=== PATIENT | male | born 1945 | race Caucasian/White ===

== ENCOUNTER 2017-07-12 06:38 | Inpatient (IN) | payer OTHER ==
[~2017-07-12] VITALS: Ht 182.9 cm; Wt 113.0 kg
[2017-07-12] MEDS ORDERED: BUPIVACAINE/PF 0.5% ONE (12:30)
[2017-07-12] MEDS ORDERED: VANCOMYCIN 1,000 MG ONE (12:30)
[2017-07-12] MEDS ORDERED: TRANEXAMIC ACID 100 MG/ML, 10ML ONE (12:30)
[2017-07-12] MEDS ORDERED: EPINEPHRINE 1 MG/ML, 1ML ONE (12:31)
[2017-07-12 12:36] VITALS: BP 158/83
[2017-07-12] MEDS ORDERED: NALO25TA PO (12:53)
[2017-07-12] MEDS ORDERED: BUSP10TA PO (12:53)
[2017-07-12] MEDS ORDERED: CITA20TA5 PO (12:53)
[2017-07-12] MEDS ORDERED: HYDR-3245 PO (12:53)
[2017-07-12] MEDS ORDERED: OMEG-14 PO (12:53)
[2017-07-12] MEDS ORDERED: HYDR80TA PO (12:53)
[2017-07-12] MEDS ORDERED: LACTATED RINGERS 1,000 ML IV SCH (13:02)
[2017-07-12] MEDS ORDERED: LIDOCAINE 1%, 2ML ONE (13:08)
[2017-07-12] MEDS ORDERED: LIDOCAINE 1%, 2ML SQ PRN (13:30)
[2017-07-12] MEDS ORDERED: KETAMINE 10 MG/ML, 20ML ONE (13:50)
[2017-07-12] MEDS ORDERED: FENTANYL PF 250 MCG/5ML ONE (13:50)
[2017-07-12] MEDS ORDERED: MIDAZOLAM 1 MG/ML, 2ML ONE (13:50)
[2017-07-12] MEDS ORDERED: PROPOFOL 50 ML ONE ×2 (14:22→15:48)
[2017-07-12] MEDS ORDERED: LABETALOL 5MG/ML, 20ML IV PRN (14:30)
[2017-07-12] MEDS ORDERED: OXYcodone 5 MG/5 ML ORAL.SOL UDC PO PRN (14:30)
[2017-07-12] MEDS ORDERED: PROMETHAZINE 25 MG/ML, 1ML IV PRN (14:30)
[2017-07-12] MEDS ORDERED: ONDANSETRON 2MG/ML, 2ML IVPush PRN ×2 (14:30→19:00)
[2017-07-12] MEDS ORDERED: hydrALAzine 20 MG/ML, 1ML IV PRN (14:30)
[2017-07-12] MEDS ORDERED: ACETAMINOPHEN 325 MG TABLET PO PRN (14:30)
[2017-07-12] MEDS ORDERED: DEXAMETHASONE 4 MG/ML, 1ML ONE (15:08)
[2017-07-12] MEDS ORDERED: CEFAZOLIN 1,000 MG ONE (15:08)
[2017-07-12] MEDS ORDERED: ONDANSETRON 2MG/ML, 2ML ONE (15:08)
[2017-07-12] MEDS ORDERED: PROPOFOL 10 MG/ML, 20ML ONE ×2 (15:37)
[2017-07-12] MEDS ORDERED: SUCCINYLCHOLINE 20 MG/ML, 10ML ONE (15:37)
[2017-07-12] MEDS ORDERED: ROCURONIUM 10 MG/ML,10ML ONE (15:37)
[2017-07-12] MEDS ORDERED: HYDROmorphone 2 MG/ML, 1ML ONE (15:39)
[2017-07-12] MEDS ORDERED: LIDOCAINE-MPF 2% ,5ML ONE (15:50)
[2017-07-12] MEDS ORDERED: LABETALOL 5MG/ML, 20ML ONE (16:49)
[2017-07-12] MEDS ORDERED: ACETAMINOPHEN 325 MG TABLET ONE (17:28)
[2017-07-12] MEDS ORDERED: ACETAMINOPHEN 650 MG/20.3 ML UDC ONE (17:28)
[2017-07-12] MEDS ORDERED: FENTANYL PF 100 MCG/2ML ONE ×2 (17:28→17:59)
[2017-07-12] MEDS ORDERED: OXYcodone 5 MG/5 ML ORAL.SOL UDC ONE (17:29)
[2017-07-12] MEDS: FENTANYL PF 100 MCG/2ML IV PRN ×2 (17:30→17:50)
[2017-07-12] MEDS ORDERED: HYDROmorphone 1 MG/ML, 1ML ONE ×2 (17:41→17:58)
[2017-07-12] MEDS: HYDROmorphone 1 MG/ML, 1ML IV PRN ×2 (17:49→17:55)
[2017-07-12] MEDS ORDERED: TRANEXAMIC ACID 1,000 MG in SODIUM CHLORIDE 0.9% 100 ML IV ONE (18:00)
[2017-07-12] MEDS ORDERED: TRANEXAMIC ACID 100 MG/ML, 10ML IVPB SCH (18:00)
[2017-07-12] MEDS ORDERED: SCOPOLAMINE PATCH, 1.5MG PATCH.TD72 TD SCH (19:00)
[2017-07-12] MEDS ORDERED: PROMETHAZINE 25 MG SUPP PR PRN (19:00)
[2017-07-12] MEDS ORDERED: BISACODYL 10 MG SUPP PR PRN (19:00)
[2017-07-12] MEDS ORDERED: DIAZEPAM 5 MG TABLET PO PRN (19:00)
[2017-07-12] MEDS ORDERED: SENNA/DOCUSATE TABLET PO PRN (19:00)
[2017-07-12] MEDS ORDERED: ACETAMINOPHEN 650 MG SUPP PR PRN (19:00)
[2017-07-12] MEDS ORDERED: ZOLPIDEM 5MG TABLET PO PRN (19:00)
[2017-07-12] MEDS ORDERED: ALUMINUM/MAG/SIMETHICONE 30 ML UDC PO PRN (19:00)
[2017-07-12] MEDS ORDERED: morphine SULFATE 10 MG/ML, 1ML IV PRN (19:00)
[2017-07-12] MEDS ORDERED: ONDANSETRON ODT 4 MG PO PRN (19:00)
[2017-07-12] MEDS ORDERED: PROMETHAZINE 25 MG/ML, 1ML IM PRN (19:00)
[2017-07-12] MEDS ORDERED: LORazepam 1MG TABLET PO PRN (19:00)
[2017-07-12] MEDS ORDERED: DEXAMETHASONE 4 MG/ML, 5ML IV PRN (19:00)
[2017-07-12] MEDS ORDERED: KETOROLAC 30 MG/1 ML IV PRN (19:00)
[2017-07-12] MEDS ORDERED: DIPHENHYDRAMINE 25 MG CAPSULE PO PRN (19:00)
[2017-07-12] MEDS ORDERED: ACETAMINOPHEN 500 MG TABLET PO PRN (19:00)
[2017-07-12] MEDS ORDERED: MAGNESIUM HYDROXIDE 8%, 30ML UDC PO PRN (19:00)
[2017-07-12] MEDS ORDERED: LORazepam 2 MG/ML, 1ML IV PRN (19:00)
[2017-07-12] MEDS ORDERED: SODIUM CHLORIDE 0.9% 1,000ML IVBOLUS PRN (19:30)
[2017-07-12 19:45] VITALS: BP 92/55
[2017-07-12 19:59] VITALS: BP 92/55
[2017-07-12] MEDS: OXYcodone IR 5MG TABLET PO PRN (21:00)
[2017-07-12] MEDS: PREGABALIN 75 MG CAPSULE PO SCH (21:02)
[2017-07-12] MEDS: DOCUSATE 100 MG CAPSULE PO SCH (21:02)
[2017-07-12] MEDS: POTASSIUM CHLORIDE 20 MEQ in D5%-0.45% NACL 1,000 ML IV SCH (21:03)
[2017-07-12] MEDS: CEFAZOLIN PMX 2GM/50ML 50 ML IVPB SCH (22:54)
[2017-07-13 00:05] VITALS: BP 90/54
[2017-07-13] MEDS: OXYcodone IR 5MG TABLET PO PRN ×8 (00:05→22:07)
[2017-07-13 01:46] VITALS: BP 96/54
[2017-07-13 04:18] VITALS: BP 118/67
[2017-07-13] MEDS: POTASSIUM CHLORIDE 20 MEQ in D5%-0.45% NACL 1,000 ML IV SCH ×3 (04:25→23:13)
[2017-07-13 05:04] LABS: HEMATOCRIT 41.3 % (39.2-51.8); HEMOGLOBIN 14.1 g/dL (13.7-18.0); WHITE BLOOD COUNT 13.7 x10^3/uL (3.4-10)
[2017-07-13] MEDS: ASPIRIN 325 MG TABLET EC PO SCH ×2 (06:23→18:26)
[2017-07-13] MEDS: CEFAZOLIN PMX 2GM/50ML 50 ML IVPB SCH (06:25)
[2017-07-13 06:54] VITALS: BP 124/58
[2017-07-13] MEDS: MOVANTIK 25 MG HOMEMEDPO SCH (09:00)
[2017-07-13] MEDS: DOCUSATE 100 MG CAPSULE PO SCH ×2 (09:26→21:02)
[2017-07-13] MEDS: PREGABALIN 75 MG CAPSULE PO SCH ×2 (09:26→21:02)
[2017-07-13] MEDS: BUSPIRONE 10 MG TABLET PO SCH (09:26)
[2017-07-13] MEDS: CITALOPRAM 20 MG TABLET PO SCH (09:26)
[2017-07-13 13:06] VITALS: BP 117/55
[2017-07-13 19:50] VITALS: BP 127/66
[2017-07-13] MEDS ORDERED: DIAZ5TAB PO (23:40)
[2017-07-14] MEDS ORDERED: OXYC10TA6 PO (00:01)
[2017-07-14] MEDS: OXYcodone IR 5MG TABLET PO PRN ×4 (01:19→11:32)
[2017-07-14 01:21] VITALS: BP 116/64
[2017-07-14 05:30] LABS: HEMOGLOBIN 13.7 g/dL (13.7-18.0); WHITE BLOOD COUNT 13.1 x10^3/uL (3.4-10)
[2017-07-14] MEDS: ASPIRIN 325 MG TABLET EC PO SCH (05:50)
[2017-07-14] MEDS: BUSPIRONE 10 MG TABLET PO SCH (08:42)
[2017-07-14] MEDS: DOCUSATE 100 MG CAPSULE PO SCH (08:42)
[2017-07-14] MEDS: CITALOPRAM 20 MG TABLET PO SCH (08:42)
[2017-07-14] MEDS: PREGABALIN 75 MG CAPSULE PO SCH (08:42)
[2017-07-14 08:46] VITALS: BP 132/68
[2017-07-14] MEDS: MOVANTIK 25 MG HOMEMEDPO SCH (08:55)
== END 2017-07-14 12:15 | disposition home or self-care (01) | DRG 470 ==
LOC: ORIP 11:56 → 4NOR 18:38
PROVIDERS: ADMIT Orthopaedic Surgery Orthopaedic Surgery of the Spine; ATTEND Orthopaedic Surgery Orthopaedic Surgery of the Spine
PROC: 0SRC0J9 Replacement of Right Knee Joint with Synthetic Substitute, Cemented, Open Approach (ICD-10-PCS; principal; 2017-07-12 14:00)
DX: M12.561 Traumatic arthropathy, right knee (principal); E78.5 Hyperlipidemia, unspecified; Y99.0 Civilian activity done for income or pay; X58.XXXA Exposure to other specified factors, initial encounter; M62.838 Other muscle spasm; F41.9 Anxiety disorder, unspecified; G47.00 Insomnia, unspecified; M17.5 Other unilateral secondary osteoarthritis of knee; Z96.652 Presence of left artificial knee joint; I10 Essential (primary) hypertension; F32.9 Major depressive disorder, single episode, unspecified; Z86.718 Personal history of other venous thrombosis and embolism; Z90.49 Acquired absence of other specified parts of digestive tract; Z79.899 Other long term (current) drug therapy
CPT/HCPCS: 36415; 85025; C1713; J0171; J0690; J1100; J1170; J2250; J2405; J2704; J3010; J3370; J3480; J3490; C1776; J0330; J7120